=== PATIENT | male | born 1985 | race American Indian/Alaskan Native ===

== ENCOUNTER 2017-04-30 08:08 | Emergency (ER) | payer SELFPAY ==
[2017-04-30 08:17] VITALS: BP 141/83
[2017-04-30] MEDS ORDERED: TYLENOL PO ONE (09:08)
[2017-04-30] MEDS ORDERED: LIDOCAINE VISCOUS 2% PO PRN (09:09)
--- NOTE | 2017-04-30 09:12 | Emergency Department Report ---
HPI - General Chief Complaint: Sore Throat Time Seen by Provider: 04/30/17 08:58 - HPI HPI: Room 29 The patient is a 32-year-old male presenting with a chief complaint of sore throat. Patient states for the past 3 days he's had body aches and sore throat cough occasionally productive of scant hemoptysis. Patient admits to nausea vomiting and diarrhea. Patient denies any sick contacts. The patient currently gives his pain score of 7/10 Location: [see above] Duration: 3 days Quality: Body aches Severity: 7/10 Modifying factors: [see above] Context: [see above] Mode of transportation: Patient drove himself to the ED and there are no visitors present ED Past Medical Hx - Past Medical History Previous Medical History?: No - Surgical History Past Surgical History?: No - Family History Family history: no significant - Social History Smoking Status: Current Every Day Smoker (1/7 pack per day) Substance Use Type: Marijuana - Medications Home Medications: Home Medications Medication Instructions Recorded Confirmed Last Taken Type Azithromycin [Zithromax Z-CATRINA] 0 mg PO DAILY #6 tab 04/30/17 Unknown Rx Promethazine /Codeine 5 ml PO Q6H PRN #100 ml 04/30/17 Unknown Rx [Phenergan/Codeine 6.25-10 mg/5 ml] Promethazine [Phenergan] 25 mg ME Q6HR PRN #5 supp.rect 04/30/17 Unknown Rx ED Review of Systems ROS: Stated complaint: SORE THROAT/VOMITING BLOOD Other details as noted in HPI Comment: All other systems reviewed and negative Constitutional: chills, fever, other (body aches) ENT: throat pain Respiratory: cough, other (occasional hemoptysis) Cardiovascular: denies: chest pain, palpitations Endocrine: no symptoms reported Gastrointestinal: nausea, vomiting. denies: abdominal pain, diarrhea Genitourinary: denies: urgency, dysuria Musculoskeletal: denies: back pain, joint swelling, arthralgia Skin: denies: rash, lesions Neurological: denies: headache, weakness, paresthesias Psychiatric: denies: anxiety, depression Hematological/Lymphatic: denies: easy bleeding, easy bruising Physical Exam - Physical Exam Vital Signs: Vital Signs 04/30/17 08:12 Temperature 100.0 F H Pulse Rate 93 H Respiratory 16 Rate Blood Pressure 141/83 O2 Sat by Pulse 100 Oximetry Physical Exam: GENERAL: The patient is well-developed well-nourished male sitting on stretcher not appearing to be in acute distress. [] HEENT: Normocephalic. Atraumatic. Extraocular motions are intact. Patient has moist mucous membranes. Oropharynx clear NECK: Supple. Trachea midline CHEST/LUNGS: Clear to auscultation. There is no respiratory distress noted. HEART/CARDIOVASCULAR: Regular. There is no tachycardia. There is no gallop rub or murmur. ABDOMEN: Abdomen is soft, nontender. Patient has normal bowel sounds. There is no abdominal distention. SKIN: There is no rash. There is no edema. There is no diaphoresis. NEURO: The patient is awake, alert, and oriented. The patient is cooperative. The patient has normal speech MUSCULOSKELETAL: There is no evidence of acute injury. ED Course Vital Signs 04/30/17 08:12 Temperature 100.0 F H Pulse Rate 93 H Respiratory 16 Rate Blood Pressure 141/83 O2 Sat by Pulse 100 Oximetry ED Medical Decision Making - Lab Data Influenza negative - Radiology Data Radiology results: image reviewed (chest x-ray, lateral soft tissue neck x-ray) interpreted by me: Chest x-ray-no focal of trays, no pneumothorax Lateral soft tissue neck x-ray-no prevertebral swelling - Differential Diagnosis acute bronchitis, URI, pharyngitis, influenza Critical care attestation.: If time is entered above; I have spent that time in minutes in the direct care of this critically ill patient, excluding procedure time. ED Disposition Clinical Impression: Acute bronchitis Disposition: DC-01 TO HOME OR SELFCARE Is pt being admited?: No Does the pt Need Aspirin: No Condition: Stable Instructions: Acute Bronchitis (ED) Additional Instructions: Return to the emergency department immediately should you develop worsening symptoms, fever, inability to tolerate food or liquid or any other concerns. Prescriptions: Azithromycin [Zithromax Z-CATRINA] 0 mg PO DAILY #6 tab Promethazine [Phenergan] 25 mg ME Q6HR PRN #5 supp.rect PRN Reason: Vomiting Promethazine /Codeine [Phenergan/Codeine 6.25-10 mg/5 ml] 5 ml PO Q6H PRN #100 ml PRN Reason: cough Referrals: PRIMARY CARE, [Primary Care Provider] - 3-5 Days SHANNAN DUFF MD [Staff Physician] - 3-5 Days Time of Disposition: 09:55
--- NOTE | 2017-04-30 10:27 | XRay Report ---
ROUTINE CHEST, TWO VIEWS: Cough, hemoptysis. PA and lateral views demonstrate the heart and mediastinal contour to be of normal size and shape. The lungs are clear and fully expanded and the soft tissues and bony structures are normal. IMPRESSION: Normal study.
--- NOTE | 2017-04-30 10:28 | XRay Report ---
AP AND LATERAL SOFT TISSUES OF THE NECK: Sore throat. The contour of the upper airway appears within normal limits. The epiglottis is not enlarged. No prevertebral soft tissue swelling is apparent. No mass density or foreign body is evident. IMPRESSION: Normal study.
== END 2017-04-30 10:02 | disposition home or self-care (01) ==
LOC: ED 08:08
DX: J20.9 Acute bronchitis, unspecified (principal); F17.200 Nicotine dependence, unspecified, uncomplicated; F12.10 Cannabis abuse, uncomplicated
CPT/HCPCS: 70360; 71020; 87400